=== PATIENT | female | born 1940 | race Caucasian/White ===

== ENCOUNTER 2016-06-19 12:39 | Emergency (ER) | payer MEDICARE, OTHER ==
[2016-06-19 13:53] LABS: BASO # 0.1 10_X3_uL (0.0-0.1); BASO % 1.4 % (0.1-1.2); EOS # 0.2 10_X3_uL (0.0-0.4); EOS % 3.4 % (0.7-5.8); GRAN % 59.7 % (34.0-71.1); HEMATOCRIT 37.8 % (34-45); HEMOGLOBIN 12.4 g/dL (11.2-15.7); LYMPH # 1.2 10_X3_uL (1.2-3.7); LYMPH % 24.1 % (19.3-51.7); MEAN CORPUSCULAR HEMOGLOBIN 31.6 pg (27.0-33.0); MEAN CORPUSCULAR HGB CONC 32.8 g/dL (32.0-36.0); MEAN CORPUSCULAR VOLUME 96.2 fL (79-95); MEAN PLATELET VOLUME 9.9 fl (7.5-11.5); MONO # 0.6 10_X3_uL (0.2-0.9); MONO % 11.4 % (4.7-12.5); PLATELET COUNT 234 x10_3/uL (182-369); RED BLOOD COUNT 3.93 x10_6/uL (3.9-5.2); RED CELL DISTRIBUTION WIDTH 13.9 % (11.7-14.4)
== END 2016-06-19 15:25 | disposition home or self-care (01) ==
LOC: ER 12:39
PROVIDERS: Family Medicine
DX: J44.9 Chronic obstructive pulmonary disease, unspecified (principal); J02.9 Acute pharyngitis, unspecified; M79.1 Myalgia; J34.89 Other specified disorders of nose and nasal sinuses; Z99.81 Dependence on supplemental oxygen; Z88.1 Allergy status to other antibiotic agents; Z88.2 Allergy status to sulfonamides
CPT/HCPCS: 36415; 71020; 85025; 87400; 99283; 99283-25